=== PATIENT | female | born 1960 | race Caucasian/White ===

== ENCOUNTER → 2019-01-31 | Day surgery (SDC) | payer OTHER ==
--- NOTE | 2019-02-04 19:34 | PATH ---
Surgical Pathology Report Patient Name: ZAID MORALES [facility]. Rec. #: [id number] /Age/Gender: 1960 (Age: 58) / F Account: [id number] Location: [facility] Taken: 01/31/2019 Received: 02/01/2019 Reported: 02/04/2019 Physicians: Derrell Sidhu M.D. 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 SEE COMMENT. Comment: The neoplasm is comprised of bundles of spindle, ovoid, and epithelial cells embedded in collagenous stroma. Immunohistochemical stains performed at [place], [place] ([id number]) and interpreted at [facility] show the neoplasm is positive for SMA, desmin, CD34, and ER. Beta-catenin shows cytoplasmic staining. Cytokeratin AE1/3, CAM 5.2, and CK-HMW (34BE12) are negative. Histomorphology and immunophenotype support the diagnosis. Positive and negative controls (internal if applicable) show appropriate results. Electronically Signed Anne-Marie Barros M.D. Gross Description Received in formalin labeled "right breast," are 6 langford-yellow, cylindrical portions of fibroadipose tissue ranging from 0.1-1.0 cm in length and averaging 0.1 cm in diameter. The specimens are submitted in toto in one cassette. Time to formalin fixation: Less than one minute Total formalin fixation time: Approximately 31 hours. 02/01/2019 [facility]02/01/2019
== END | disposition home or self-care (01) ==
LOC: JRADUS-SUR 09:56
PROVIDERS: ATTEND Obstetrics & Gynecology
PROC: 0HBT3ZX Excision of Right Breast, Percutaneous Approach, Diagnostic (ICD-10-PCS; principal; 2019-01-31)
DX: D24.1 Benign neoplasm of right breast (principal)
CPT/HCPCS: 19083; 87899; 88305-TC; A4648

== ENCOUNTER 2019-05-06 07:33 | Day surgery (SDC) | payer OTHER ==
[2019-05-05 11:41] VITALS: BMI 33.4
[2019-05-06] MEDS ORDERED: MIDAZOLAM HCL 2 MG/2 ML SINGLE DOSE VIAL ONE (08:23)
[2019-05-06] MEDS ORDERED: PROPOFOL 20 ML ONE ×2 (08:23→09:45)
[2019-05-06] MEDS ORDERED: LIDOCAINE HCL/PF 2% SDV 5ML VIAL ONE (08:24)
[2019-05-06] MEDS ORDERED: oxyCODONE HCL 5 MG TABLET PO PRN (09:10)
[2019-05-06] MEDS ORDERED: ONDANSETRON 4 MG/2 ML VIAL IVPUSH PRN (09:10)
[2019-05-06] MEDS ORDERED: LIDOCAINE HCL 1%, 10 MG/ML (20ML VIAL) ONE ×2 (09:11→09:44)
[2019-05-06] MEDS ORDERED: LACTATED RINGERS SOLUTION 1,000 ML IV SCH (09:15)
[2019-05-06] MEDS ORDERED: DEXAMETHASONE SOD PHOSPHATE 4 MG/1 ML VIAL ONE (09:27)
[2019-05-06] MEDS ORDERED: LIDOCAINE HCL 1%, 10 MG/ML (20ML VIAL) INF ONE (09:36)
[2019-05-06] MEDS ORDERED: KETOROLAC TROMETHAMINE 30 MG/1 ML VIAL ONE (09:45)
[2019-05-06 12:21] VITALS: BP 103/50; PULSE 62; TEMP 97.7
--- NOTE | 2019-05-06 13:24 | OP ---
DATE OF OPERATION: 05/06/2019 PREOPERATIVE DIAGNOSIS: Right breast mass. POSTOPERATIVE DIAGNOSIS: Right breast mass. PROCEDURE: Right breast ultrasound-guided wire localized excision of mass. SURGEON: Mary Alicia MD ANESTHESIA: Local, IV sedation. ESTIMATED BLOOD LOSS: Minimal. COMPLICATIONS: None. This was a sterile procedure. INDICATIONS: Patient presented with a screening mammogram and ultrasound. The mammogram and ultrasound noted a 4-cm mass in the right breast 10-11 o'clock location 5 cm from the nipple. A needle biopsy showed a myofibroblastoma, my recommendation was an excision. The procedure was discussed with all of the questions answered. PROCEDURE IN DETAIL: Patient was brought to [facility] in [place], taken into the operating room, and after IV sedation, an intraoperative ultrasound was performed. Using Betadine, 1% lidocaine, a wire was used to localize this under ultrasound guidance by me. Images were recorded. The right breast next was done. Prepped and draped in usual sterile fashion. A periareolar incision was made in the upper, outer right breast after the area was anesthetized with 1% lidocaine without epinephrine, and the wire was used as a guide to get down to the area. was excised en bloc and sent as an excision of right breast mass to Pathology in formalin. Hemostasis assured with electrocautery. The parenchyma was approximated with interrupted 2-0 Vicryl, skin approximated with interrupted 3-0 Vicryl, running 4-0 Prolene. A sterile dressing of Tegaderm, 4 X 4 was applied. She tolerated the procedure well, was taken to recovery in good condition. MARY ALICIA M.D. [id number]
--- NOTE | 2019-05-09 16:48 | PATH ---
Surgical Pathology Report Patient Name: ZAID MORALES [facility]. Rec. #: [id number] /Age/Gender: 1960 (Age: 58) / F Account: [id number] Location: [facility] Taken: 05/06/2019 Received: 05/06/2019 Reported: 05/09/2019 Physicians: Mary Peralta M.D. Specimen(s) Received RIGHT BREAST EXCISION OF MASS Clinical History Non-palpable lesion Final Diagnosis BREAST, MASS, RIGHT,EXCISION: MYOFIBROBLASTOMA. PRIOR BIOPSY SITE CHANGES PRESENT. SEE COMMENT. Comment: The neoplasm is comprised of bundles of spindle, ovoid, and epithelial cells embedded in collagenous stroma. Rare microcalcifications noted. Immunohistochemical stains performed on prior biopsy ([id number]) are as follows: neoplasm is positive for SMA, desmin, CD34, and ER. Beta-catenin shows cytoplasmic staining, while negative for Cytokeratin AE1/3, CAM 5.2, and CK-HMW (34BE12). Electronically Signed Anne-Marie Barros M.D. Gross Description Received in formalin labeled "right breast excision," is a 5.8 x 4.4 x 1.9 cm langford-yellow, unoriented portion of fibroadipose tissue with a needle localization wire present. There is no skin or nipple present. The specimen is inked green and serially sectioned. Sectioning reveals a 3.3 x 2.2 x 1.4 cm langford-pink, well-circumscribed, soft mass focally abutting the surgical margin. There is a prescott metallic biopsy clip identified within the mass. The remaining breast parenchyma displays yellow, lobulated adipose tissue. The mass is entirely and sequentially submitted in 6 cassettes. Time to formalin fixation: 4 minutes Total formalin fixation time: Approximately 8 hours. /05/06/2019 [place]05/06/2019
== END 2019-05-06 12:10 | disposition home or self-care (01) ==
LOC: JASU-SURG 07:33
PROVIDERS: ATTEND Surgery
PROC: 0HBT0ZX Excision of Right Breast, Open Approach, Diagnostic (ICD-10-PCS; principal; 2019-05-06 09:00)
DX: D48.61 Neoplasm of uncertain behavior of right breast (principal)
CPT/HCPCS: 88307-TC

== ENCOUNTER 2020-07-24 16:48 | Emergency (ER) | payer BC ==
[2020-07-24 17:04] VITALS: BP 179/95; PULSE 74; TEMP 98.6; BMI 35.7
[2020-07-24] MEDS ORDERED: ACETAMINOPHEN 500 MG TABLET (FP) PO ONE (17:10)
[2020-07-24] MEDS ORDERED: KETOROLAC TROMETHAMINE 30 MG/1 ML VIAL IM ONE (17:10)
[2020-07-24] MEDS ORDERED: KETOROLAC TROMETHAMINE 30 MG/1 ML VIAL ONE (17:25)
[2020-07-24] MEDS ORDERED: ACETAMINOPHEN 500 MG TABLET (FP) ONE (17:25)
[2020-07-24] MEDS ORDERED: METHOCARBAMOL 500 MG TABLET PO ONE (18:08)
[2020-07-24] MEDS ORDERED: METHOCARBAMOL 500 MG TABLET ONE (18:15)
[2020-07-24 18:18] LABS: EPITHELIAL CELLS FEW /hpf
== END 2020-07-24 18:35 | disposition home or self-care (01) ==
LOC: FER 16:48
PROC: 3E0233Z Introduction of Anti-inflammatory into Muscle, Percutaneous Approach (ICD-10-PCS; principal; 2020-07-24)
DX: L25.1 Unspecified contact dermatitis due to drugs in contact with skin (principal); M54.5 Low back pain
CPT/HCPCS: 81003; 81015; 87077; 87086; 99284-25